=== PATIENT | female | born 2000 | race Two or more races ===

== ENCOUNTER 2020-02-17 05:48 | Emergency (ER) | payer MEDICAID ==
[~2020-02-17] VITALS: Ht 167.6 cm; Wt 61.8 kg
[2020-02-17] MEDS ORDERED: [UNRECOGNIZED DRUG - REMARK] PO (05:54)
[2020-02-17 06:12] VITALS: BP 120/80
== END 2020-02-17 06:28 | disposition home or self-care (01) ==
LOC: EMS 05:54
DX: L30.9 Dermatitis, unspecified (principal); Z88.8 Allergy status to other drugs, medicaments and biological substances

== ENCOUNTER 2020-03-20 20:47 | Emergency (ER) | payer MEDICAID ==
[~2020-03-20] VITALS: Ht 170.2 cm; Wt 61.8 kg
[~2020-03-20 20:47] MED LIST: [UNRECOGNIZED DRUG - REMARK] PO
[2020-03-20 22:15] VITALS: BP 131/85
[2020-03-20] MEDS ORDERED: ACETAMINOPHEN 500 MG TABLET PO ONE (22:15)
[2020-03-20] MEDS ORDERED: TETRACAINE HCL/PF 0.5% 4 ML OPHTHALMIC SOLUTION OD ONE (22:15)
[2020-03-20] MEDS ORDERED: FLUORESCEIN SODIUM 1 MG STRIP OU ONE (22:15)
[2020-03-20] MEDS ORDERED: SULFACETAMIDE SODIUM 10% 15 ML OPHTHALMIC SOLUTION OD ONE (23:00)
== END 2020-03-20 23:10 | disposition home or self-care (01) ==
LOC: EMS 20:47
DX: S05.01XA Injury of conjunctiva and corneal abrasion without foreign body, right eye, initial encounter (principal); F17.210 Nicotine dependence, cigarettes, uncomplicated; Z91.013 Allergy to seafood; Y04.0XXA Assault by unarmed brawl or fight, initial encounter; Y93.89 Activity, other specified; Y92.89 Other specified places as the place of occurrence of the external cause; Y99.8 Other external cause status
CPT/HCPCS: Z7502; Z7610